=== PATIENT | male | born 1960 | race Two or more races ===

== ENCOUNTER 2018-01-22 10:46 | Outpatient (CLI) | payer OTHER | END 2018-01-22 10:54 | disposition home or self-care (01) | LOC: NUCLEAR 10:46 | DX: I87.2 Venous insufficiency (chronic) (peripheral) (principal) ==

== ENCOUNTER 2018-09-02 12:34 | Outpatient (CLI) | payer OTHER ==
[~2018-09-02 12:34] MED LIST: KETO10TA2 PO; TIZANIDINE HCL2 MG PO
== END 2018-09-02 14:46 | disposition home or self-care (01) ==
LOC: MRI 12:34
DX: M54.5 Low back pain (principal)
CPT/HCPCS: 72148

== ENCOUNTER 2020-01-19 10:21 | Emergency (ER) | payer OTHER ==
[~2020-01-19] VITALS: Ht 152.4 cm; Wt 83.9 kg
[~2020-01-19 10:21] MED LIST changes: +GABAPENTIN100 MG PO; +GABAPENTIN600 MG PO; +VOLTAREN100 GM TOP
[2020-01-19] MEDS ORDERED: PRISTIQ ER50 MG (10:33)
[2020-01-19] MEDS ORDERED: TOPROL XL50 M1 (10:33)
[2020-01-19] MEDS ORDERED: CLONAZEPAM0.5 MG (10:33)
[2020-01-19] MEDS ORDERED: TAMS0.4C PO (14:14)
[2020-01-19] MEDS ORDERED: KETO10TA2 PO (14:14)
== END 2020-01-19 15:07 | disposition home or self-care (01) ==
LOC: ER 10:21
DX: R10.12 Left upper quadrant pain (principal); Z03.818 Encounter for observation for suspected exposure to other biological agents ruled out; R53.81 Other malaise

== ENCOUNTER → 2020-03-24 | Outpatient (CLI) | payer OTHER ==
[~2020-03-24] MED LIST changes: +CLONAZEPAM0.5 MG; +PRISTIQ ER50 MG; +TAMS0.4C PO; +TOPROL XL50 M1
== END | disposition home or self-care (01) ==
LOC: RAD 15:53
PROVIDERS: ATTEND Internal Medicine Rheumatology
DX: M15.8 Other polyosteoarthritis (principal); M46.1 Sacroiliitis, not elsewhere classified

== ENCOUNTER 2020-07-21 09:44 | Outpatient (CLI) | payer OTHER | END 2020-07-21 09:54 | disposition home or self-care (01) | LOC: SONOGRAMA 09:44 | PROVIDERS: ATTEND Internal Medicine Rheumatology | DX: M75.82 Other shoulder lesions, left shoulder (principal) ==

== ENCOUNTER 2020-09-01 10:43 | Outpatient (CLI) | payer OTHER | END 2020-09-01 10:45 | disposition home or self-care (01) | LOC: RX STUDY 10:43 | PROVIDERS: ATTEND Internal Medicine Cardiovascular Disease | DX: R13.19 Other dysphagia (principal) ==

== ENCOUNTER 2020-09-08 13:53 | Outpatient (CLI) | payer OTHER | END 2020-09-08 13:58 | disposition home or self-care (01) | LOC: LAB 13:53 | PROVIDERS: ATTEND Orthopaedic Surgery | DX: N17.8 Other acute kidney failure (principal) ==

== ENCOUNTER 2020-09-17 10:49 | Outpatient (CLI) | payer OTHER | END 2020-09-17 10:57 | disposition home or self-care (01) | LOC: MRI 10:49 | PROVIDERS: ATTEND Orthopaedic Surgery | DX: M25.512 Pain in left shoulder (principal); M75.42 Impingement syndrome of left shoulder | CPT/HCPCS: 73222; A9575 ==

== ENCOUNTER 2021-02-25 08:52 | Emergency (ER) | payer OTHER ==
[~2021-02-25] VITALS: Ht 175.3 cm; Wt 83.9 kg
== END 2021-02-25 19:22 | disposition home or self-care (01) ==
LOC: ER 08:52
DX: I20.8 Other forms of angina pectoris (principal); I10 Essential (primary) hypertension; M62.830 Muscle spasm of back; Z11.52 Encounter for screening for COVID-19

== ENCOUNTER → 2021-05-09 09:50 | Outpatient (CLI) | payer OTHER ==
[~2021-05-09 09:50] MED LIST changes: +CAMBIA50 MG PO; +KLONOPIN PO; +NEURONTIN300 MG PO; +PRISTIQ ER50 MG PO; +RISPERDAL0.5 MG PO; +SYNTHROID50 MCG PO; +TOPROL XL25 M1 PO
== END | disposition home or self-care (01) ==
LOC: LAB 09:50
PROVIDERS: ATTEND Orthopaedic Surgery
DX: I10 Essential (primary) hypertension (principal); D64.89 Other specified anemias; E88.89 Other specified metabolic disorders; D68.8 Other specified coagulation defects; N39.0 Urinary tract infection, site not specified; Z22.322 Carrier or suspected carrier of Methicillin resistant Staphylococcus aureus; Z76.89 Persons encountering health services in other specified circumstances; I49.8 Other specified cardiac arrhythmias

== ENCOUNTER 2021-05-23 06:35 | Day surgery (SDC) | payer OTHER | END 2021-05-23 17:00 | disposition home or self-care (01) | LOC: CIR.AMB 06:35 | PROVIDERS: ATTEND Orthopaedic Surgery | DX: S46.812D Strain of other muscles, fascia and tendons at shoulder and upper arm level, left arm, subsequent encounter (principal); M75.22 Bicipital tendinitis, left shoulder; M75.42 Impingement syndrome of left shoulder; Z20.822 Contact with and (suspected) exposure to COVID-19 ==

== ENCOUNTER 2021-09-28 13:59 | Emergency (ER) | payer OTHER ==
[~2021-09-28] VITALS: Ht 175.3 cm; Wt 83.9 kg
[~2021-09-28 13:59] MED LIST changes: +TRAMADOL HCL50 MG PO
== END 2021-09-28 19:56 | disposition home or self-care (01) ==
LOC: ER 13:59
DX: R07.9 Chest pain, unspecified (principal)

== ENCOUNTER 2022-04-09 13:51 | Emergency (ER) | payer OTHER ==
[~2022-04-09] VITALS: Ht 175.3 cm; Wt 88.5 kg
== END 2022-04-09 20:27 | disposition home or self-care (01) ==
LOC: ER 13:51
DX: M54.89 Other dorsalgia (principal)

== ENCOUNTER 2022-04-17 13:41 | Outpatient (CLI) | payer OTHER | END 2022-04-17 13:48 | disposition home or self-care (01) | LOC: RAD 13:41 | PROVIDERS: ATTEND Internal Medicine Cardiovascular Disease | DX: M46.47 Discitis, unspecified, lumbosacral region (principal); M12.9 Arthropathy, unspecified ==

== ENCOUNTER 2022-10-28 09:16 | Outpatient (CLI) | payer OTHER | END 2022-10-28 09:22 | disposition home or self-care (01) | LOC: RAD 09:16 | PROVIDERS: ATTEND Internal Medicine Rheumatology | DX: M15.8 Other polyosteoarthritis (principal); M25.562 Pain in left knee; M25.561 Pain in right knee ==

== ENCOUNTER 2022-12-05 08:04 | Outpatient (CLI) | payer OTHER | END 2022-12-05 08:10 | disposition home or self-care (01) | LOC: NUCLEAR 08:04 | PROVIDERS: ATTEND Internal Medicine Cardiovascular Disease | DX: R07.9 Chest pain, unspecified (principal) ==

== ENCOUNTER 2022-12-06 08:46 | Outpatient (CLI) | payer OTHER | END 2022-12-06 08:53 | disposition home or self-care (01) | LOC: SONOGRAMA 08:46 | PROVIDERS: ATTEND Internal Medicine Cardiovascular Disease | DX: M12.9 Arthropathy, unspecified (principal) ==

== ENCOUNTER 2023-05-09 12:17 | Outpatient (CLI) | payer OTHER | END 2023-05-09 12:29 | disposition home or self-care (01) | LOC: MRI 12:17 | PROVIDERS: ATTEND Internal Medicine Rheumatology | DX: M15.8 Other polyosteoarthritis (principal) | CPT/HCPCS: 73721 ==

== ENCOUNTER 2023-09-10 14:07 | Emergency (ER) | payer OTHER ==
[~2023-09-10] VITALS: Ht 175.3 cm; Wt 88.5 kg
[2023-09-10] MEDS ORDERED: EZALLOR SPRINKLE5 MG (15:22)
[2023-09-10 17:34] LABS: HEMATOCRIT 42.3 % (39.0-48.0); HEMOGLOBIN 14.9 g/dL (13-16.00); MEAN CELL VOLUME 90.6 fL (80.0-100.00); MEAN CORPUSCULAR HEMOGLOBIN 31.9 pg (27.00-32.0); MEAN CORPUSCULAR HGB CONC 35.2 g/dl (32.0-36.0); PLATELET COUNT 192 K/uL (150-450); RED BLOOD COUNT 4.67 M/uL (4.00-6.00); RED CELL DISTRIBUTION WIDTH 12.9 % (11.5-14.5)
[2023-09-10 17:55] LABS: URINE APPEARANCE Clear; URINE BILIRRUBIN Negative (NEGATIVE); URINE BLOOD Negative; URINE COLOR Yellow; URINE GLUCOSE Negative (NEGATIVE); URINE LEUKOCYTE Negative; URINE NITRATE Negative; URINE PROTEIN Negative (NEGATIVE); URINE UROBILINOGEN 0.2 E.U./dl
[2023-09-10 18:00] LABS: URINE BACTERIA 0 uL (0.0-1933); URINE EPITHELIAL CELLS 0.6 uL (0.0-38.8); URINE RBC 0.4 uL (0.0-20.8); URINE WBC 1.3 uL (0.0-23.2)
[2023-09-10 18:07] LABS: CALCIUM 9.6 mg/dL (8.5-10.1); CREATININE SERUM 1.16 mg/dL (0.70-1.30); GFR 64.01; POTASSIUM 4.2 mEq/L (3.5-5.1)
[2023-09-10] MEDS ORDERED: KETOROLAC TROMETHAMINE 60 MG VIAL IM ONE (20:15)
== END 2023-09-10 20:25 ==
LOC: ER 14:07
PROVIDERS: Nurse Practitioner Family
DX: K57.90 Diverticulosis of intestine, part unspecified, without perforation or abscess without bleeding (principal); R10.32 Left lower quadrant pain; I10 Essential (primary) hypertension; E03.8 Other specified hypothyroidism; E78.49 Other hyperlipidemia
CPT/HCPCS: 36415; 74176; 96372; 99284; J1885

== ENCOUNTER 2023-12-26 09:27 | Outpatient (CLI) | payer OTHER ==
[~2023-12-26 09:27] MED LIST changes: +EZALLOR SPRINKLE5 MG
== END 2023-12-26 09:34 | disposition home or self-care (01) ==
LOC: RX STUDY 09:27
PROVIDERS: ATTEND Internal Medicine Cardiovascular Disease
DX: R10.13 Epigastric pain (principal)

== ENCOUNTER → 2023-12-28 07:24 | Outpatient (CLI) | payer OTHER | END | disposition home or self-care (01) | LOC: NUCLEAR 07:00 | PROVIDERS: ATTEND Internal Medicine | DX: I20.9 Angina pectoris, unspecified (principal) | CPT/HCPCS: 78452; 93017; A9500 ==

== ENCOUNTER 2024-12-25 10:10 | Outpatient (CLI) | payer OTHER | END 2024-12-25 10:16 | disposition home or self-care (01) | LOC: MRI 10:10 | PROVIDERS: ATTEND Neuromusculoskeletal Medicine & OMM | DX: M15.8 Other polyosteoarthritis (principal); M50.20 Other cervical disc displacement, unspecified cervical region; M51.26 Other intervertebral disc displacement, lumbar region; M51.360 Other intervertebral disc degeneration, lumbar region with discogenic back pain only; R41.3 Other amnesia; D49.6 Neoplasm of unspecified behavior of brain; G40.909 Epilepsy, unspecified, not intractable, without status epilepticus | CPT/HCPCS: 70553; 72141; 72148; 73218; Q9965 ==

== ENCOUNTER 2025-05-27 12:22 | Outpatient (CLI) | payer OTHER | END 2025-05-27 12:25 | disposition home or self-care (01) | LOC: RAD 12:22 | DX: M17.12 Unilateral primary osteoarthritis, left knee (principal) ==